=== PATIENT | male | born 1980 | race Caucasian/White ===

== ENCOUNTER 2018-02-26 19:54 | Emergency (ER) | payer OTHER ==
[~2018-02-26] VITALS: Ht 182.9 cm; Wt 95.3 kg
[~2018-02-26 19:54] MED LIST: CIPRO500 MG PO; ULTRACET PO
== END 2018-02-26 23:44 | disposition home or self-care (01) ==
LOC: ER 19:54
DX: S61.412A Laceration without foreign body of left hand, initial encounter (principal); W45.8XXA Other foreign body or object entering through skin, initial encounter; Y93.89 Activity, other specified; Y92.89 Other specified places as the place of occurrence of the external cause; Y99.8 Other external cause status

== ENCOUNTER 2018-03-05 11:05 | Emergency (ER) | payer OTHER ==
[~2018-03-05] VITALS: Ht 182.9 cm; Wt 95.3 kg
== END 2018-03-05 12:29 | disposition home or self-care (01) ==
LOC: ER 11:05
DX: Z48.02 Encounter for removal of sutures (principal)